=== PATIENT | female | born 1995 | race African-American/Black ===

== ENCOUNTER 2022-01-12 11:46 | Emergency (ER) | payer MEDICAID, OTHER ==
[~2022-01-12] VITALS: Ht 172.7 cm; Wt 72.0 kg
[2022-01-12 11:59] VITALS: BP 107/68
[2022-01-12] MEDS ORDERED: CYCLOBENZAPRINE 10MG TABLET PO ONE (12:15)
[2022-01-12] MEDS ORDERED: ACETAMINOPHEN 500MG TABLET PO ONE (12:15)
[2022-01-12] MEDS ORDERED: LIDOCAINE 5% PATCH TOP SCH (12:15)
[2022-01-12] MEDS ORDERED: TRAMADOL 50MG TABLET PO ONE (13:00)
[2022-01-12] MEDS ORDERED: NAP5EC MT (13:14)
[2022-01-12] MEDS ORDERED: CYCL10TA7 MT (13:14)
== END 2022-01-12 13:43 | disposition home or self-care (01) ==
LOC: ER 11:46
DX: M54.59 Other low back pain (principal)
CPT/HCPCS: 99284

== ENCOUNTER 2022-10-12 03:16 | Emergency (ER) | payer OTHER ==
[~2022-10-12] VITALS: Ht 172.7 cm; Wt 71.0 kg
[~2022-10-12 03:16] MED LIST: CYCL10TA21 MT; IBUP-2029 MT; NAP5EC MT
[2022-10-12] MEDS ORDERED: MORPHINE SULFATE 10 MG/ML CPJ IM ONE (04:00)
[2022-10-12 04:38] VITALS: BP 110/72
[2022-10-12] MEDS ORDERED: KETOROLAC 60MG/2ML VIAL IM STA (04:52)
[2022-10-12] MEDS ORDERED: HYDR-4001 MT (05:38)
[2022-10-12] MEDS ORDERED: IBUP-2029 PO (05:38)
== END 2022-10-12 06:30 | disposition home or self-care (01) ==
LOC: ER 03:16
DX: S82.831A Other fracture of upper and lower end of right fibula, initial encounter for closed fracture (principal); S82.391A Other fracture of lower end of right tibia, initial encounter for closed fracture; X50.1XXA Overexertion from prolonged static or awkward postures, initial encounter; Y93.41 Activity, dancing; Y92.480 Sidewalk as the place of occurrence of the external cause
CPT/HCPCS: 29515; 73610; 81025; 96372; 99284; J1885; J2270